=== PATIENT | female | born 1960 | race African-American/Black ===

== ENCOUNTER 2020-07-14 13:41 | Emergency (ER) | payer MEDICARE, MEDICAID ==
[~2020-07-14] VITALS: Ht 160 cm; Wt 86.4 kg
[2020-07-14 13:53] VITALS: Ht 160 cm; Wt 86.4 kg
[2020-07-14] MEDS ORDERED: CELLCEPT250 MG PO (16:09)
[2020-07-14] MEDS ORDERED: FUROSEMIDE20 MG PO (16:10)
[2020-07-14] MEDS ORDERED: PREDNISONE5 MG PO (16:10)
[2020-07-14] MEDS ORDERED: RAPAMUNE1 MG (16:10)
[2020-07-14] MEDS ORDERED: PRAVACHOL20 MG PO (16:11)
[2020-07-14] MEDS ORDERED: CARDIZEM120 MG PO (16:14)
[2020-07-14 17:32] LABS: BASOPHILS 0.1 % (0-2); EOSINOPHILS 0 % (0-7); HEMATOCRIT 41.5 % (36.0-48.0); HEMOGLOBIN 12.7 g/dL (12-16); IMMATURE GRANULOCYTES 0.3 % (0-5); LYMPHOCYTES 11.1 % (15-50); MCH 24.9 pg (26.0-34.0); MCHC 30.6 g/dL (31.0-37.0); MCV 81.4 fL (80.0-100.0); MEAN PLATELET VOLUME 10.8 fL (7.4-10.4); MONOCYTES 2.5 % (2-11); PLATELET COUNT 159 10x3/uL (130-400); RDW 14.1 % (11.5-14.5); WBC 13.9 10x3/uL (4.8-10.8)
[2020-07-14 17:40] LABS: APTT 33.3 SECONDS (22.8-39.4); INR 1.06 (0.85-1.17); PROTIME 13.7 SECONDS (11.6-15.0)
[2020-07-14 17:46] LABS: CALC OSMOLALITY 279 mosm/kg (275-300); CALCIUM 9.3 mg/dL (8.5-10.1); CARBON DIOXIDE 25.5 mmol/L (21.0-32.0); CHLORIDE - SERUM 101 mmol/L (98-107); GLUCOSE 105 mg/dL (74-106); POTASSIUM - SERUM 4.5 mmol/L (3.5-5.1); SODIUM 138 mmol/L (136-145); UREA NITROGEN 25 mg/dL (7-18); eGFR NON AFRICAN AMERICAN 17 mL/min (90-120)
[2020-07-14 18:00] LABS: ALBUMIN 3.1 g/dL (3.4-5.0); ALKALINE PHOSPHATASE 79 U/L (30-120); ALT (SGPT) 25 U/L (10-68); BILIRUBIN - TOTAL 0.36 mg/dL (0.2-1.3); CKMB 0.4 U/L (0.0-3.6); CREATINE KINASE 90 UL (21-215); MAGNESIUM - SERUM 2.6 mg/dL (1.8-2.4); PROTEIN - SERUM 8.1 g/dL (6.4-8.2); TROPONIN-I < 0.017 ng/mL (0.000-0.060)
[2020-07-14] MEDS ORDERED: LOTENSIN 10 MG10 MG PO (18:21)
[2020-07-14 20:04] VITALS: BP 174/93
== END 2020-07-14 20:04 | disposition home or self-care (01) ==
LOC: D.ER 13:41
PROVIDERS: Family Medicine
DX: R51.9 Headache, unspecified (principal); I10 Essential (primary) hypertension